=== PATIENT | female | born 1995 | race African-American/Black ===

== ENCOUNTER 2016-03-26 09:22 | Emergency (ER) | payer MEDICAID | END 2016-03-26 09:57 | disposition home or self-care (01) | LOC: D.ER 09:22 | DX: J20.9 Acute bronchitis, unspecified (principal); H66.92 Otitis media, unspecified, left ear ==

== ENCOUNTER 2016-07-09 23:19 | Emergency (ER) | payer MEDICAID | END 2016-07-10 01:30 | disposition home or self-care (01) | LOC: D.ER 23:19 | DX: H66.93 Otitis media, unspecified, bilateral (principal); F17.200 Nicotine dependence, unspecified, uncomplicated ==

== ENCOUNTER 2016-08-13 18:27 | Emergency (ER) | payer MEDICAID | END 2016-08-13 22:39 | disposition home or self-care (01) | LOC: D.ER 18:27 | DX: L02.411 Cutaneous abscess of right axilla (principal) ==

== ENCOUNTER 2017-04-19 21:36 | Emergency (ER) | payer MEDICAID | END 2017-04-20 00:25 | disposition home or self-care (01) | LOC: D.ER 21:36 | DX: J06.9 Acute upper respiratory infection, unspecified (principal); J01.90 Acute sinusitis, unspecified ==

== ENCOUNTER 2017-10-21 17:32 | Emergency (ER) | payer MEDICAID ==
[~2017-10-21] VITALS: Ht 170.2 cm; Wt 127.3 kg
[2017-10-21 17:35] VITALS: Ht 170.2 cm; Wt 127.3 kg
[2017-10-21] MEDS ORDERED: CLEOCIN HCL300 MG PO (18:35)
[2017-10-21] MEDS ORDERED: ULTRAM50 MG PO (18:35)
[2017-10-21 19:07] VITALS: BP 120/573
[2017-11-29 10:21] VITALS: Ht 170.2 cm; Wt 127.3 kg
== END 2017-10-21 19:05 | disposition home or self-care (01) ==
LOC: D.ER 17:32
DX: L73.2 Hidradenitis suppurativa (principal)

== ENCOUNTER 2017-11-23 17:04 | Emergency (ER) | payer MEDICAID ==
[~2017-11-23] VITALS: Ht 170.2 cm; Wt 127.3 kg
[~2017-11-23 17:04] MED LIST: CLEOCIN HCL300 MG PO; ULTRAM50 MG PO
[2017-11-23 17:08] VITALS: Ht 170.2 cm; Wt 127.3 kg
[2017-11-23] MEDS ORDERED: TORADOL10 MG PO (19:27)
[2017-11-23] MEDS ORDERED: DOXYCYCLINE HY100 M2 PO (19:27)
[2017-11-23 19:30] VITALS: BP 105/69
[2017-11-29 10:21] VITALS: Ht 170.2 cm; Wt 127.3 kg
== END 2017-11-23 19:44 | disposition home or self-care (01) ==
LOC: D.ER 17:04
DX: L73.2 Hidradenitis suppurativa (principal); F17.200 Nicotine dependence, unspecified, uncomplicated

== ENCOUNTER 2017-11-29 08:00 | Day surgery (SDC) | payer MEDICAID ==
[~2017-11-29] VITALS: Ht 170.2 cm; Wt 132.0 kg
--- NOTE | ~2017-11-29 | OP ---
PATIENT NAME: GETACHEW ZAMBRANO MEDICAL RECORD: [id number] :93 LOCATION:[facility] ADMISSION DATE: SURGEON: NIKOLAY LACY MD DATE OF OPERATION: 11/29/2017 PREOPERATIVE DIAGNOSES: 1. Axillary hidradenitis suppurativa. 2. Tobacco dependence syndrome. 3. Hypertension. 4. Arthritis. POSTOPERATIVE DIAGNOSES: 1. Axillary hidradenitis suppurativa. 2. Tobacco dependence syndrome. 3. Hypertension. 4. Arthritis. PROCEDURE: Excision of bilateral axillary hidradenitis. SURGEON: Nikolay Lacy MD REPORT OF PROCEDURE: The patient's bilateral armpits were prepped and draped in sterile fashion. We approached the left side first. I mapped out an area around the area of inflamed tissue around the axilla. An ovoid incision was made longitudinally through the axilla incorporating all of this tissue. We continued our dissection through the subcutaneous fatty tissue down towards the fascia. We then undermined the tissue in all directions and reapproximated the subcutaneous tissues with interrupted 3-0 Vicryls. The wound had been irrigated out thoroughly and there was no sign of any bleeding, so at this point we reapproximated the skin edges using vertical mattress 2-0 nylons. At the conclusion of the case, the longitudinal incision through the axilla measured 10 cm in length. We then approached the right axilla. Again, I mapped out an area around the inflamed tissue and an ovoid incision was made longitudinally. We continued dissection through the subcutaneous tissue using electrocautery down to the fascia. We then undermined the tissue in all directions and reapproximated the subcutaneous tissues with interrupted 3-0 Vicryls. After we obtained hemostasis, we irrigated out the wound and then closed the skin using vertical mattress 2-0 nylons. At the conclusion of the case, this longitudinal incision was 11 cm in length. The wounds were then dressed appropriately. COMPLICATIONS: None. CONDITION: Stable. ANESTHESIA: General endotracheal. BLOOD LOSS: 50 mL. TRANSINT:[id number] Voice Confirmation ID: [id number] DOCUMENT ID: [id number] OPERATIVE REPORT [id number] GETACHEW ZAMBRANO NIKOLAY LACY MD at 2300 CC: [id number] DICTATION DATE: 11/29/17 1257 LATIN DANCE INSTRUCTOR: 11/29/17 1304 [facility] [address] [place] [id number]
[~2017-11-29 08:00] MED LIST changes: +DOXYCYCLINE HY100 M2 PO; +TORADOL10 MG PO
[2017-11-29 09:26] LABS: CALC OSMOLALITY 273 mosm/kg (275-300); CALCIUM 8.1 mg/dL (8.5-10.1); CARBON DIOXIDE 22.9 mmol/L (21.0-32.0); CHLORIDE - SERUM 106 mmol/L (98-107); CREATININE - SERUM 0.8 mg/dL (0.6-1.3); GLUCOSE 88 mg/dL (74-106); HCG SERUM NEGATIVE (NEGATIVE); POTASSIUM - SERUM 3.4 mmol/L (3.5-5.1); SODIUM 138 mmol/L (136-145); UREA NITROGEN 9 mg/dL (7-18); eGFR NON AFRICAN AMERICAN > 90 mL/min (90-120)
[2017-11-29 09:43] LABS: HEMATOCRIT 34.8 % (36.0-48.0); HEMOGLOBIN 12.4 g/dL (12-16); LYMPHOCYTES 29.1 % (15-50); MCH 30.2 pg (26.0-34.0); MCHC 35.6 g/dL (31.0-37.0); MCV 84.7 fL (80.0-100.0); MEAN PLATELET VOLUME 10.3 fL (7.4-10.4); NEUTROPHILS 62.7 % (40-80); RBC 4.11 10x6/uL (4.00-5.40); RDW 13.9 % (11.5-14.5); WBC 6.1 10x3/uL (4.8-10.8)
[2017-11-29 09:51] LABS: PLATELET COUNT 266 10x3/uL (130-400)
[2017-11-29 10:21] VITALS: BP 128/73; BMI 45.7
[2017-11-29] MEDS ORDERED: HYDROCODONE-APA1 TAB PO (12:52)
[2017-12-19 08:31] VITALS: Ht 170.2 cm; Wt 132.0 kg
== END 2017-11-29 15:45 | disposition home or self-care (01) ==
LOC: D.OPS 08:00
PROVIDERS: Anesthesiology
DX: L73.2 Hidradenitis suppurativa (principal); I10 Essential (primary) hypertension; F17.200 Nicotine dependence, unspecified, uncomplicated; M19.90 Unspecified osteoarthritis, unspecified site; E66.9 Obesity, unspecified; Z01.812 Encounter for preprocedural laboratory examination

== ENCOUNTER 2017-12-19 07:51 | Day surgery (SDC) | payer MEDICAID ==
[~2017-12-19] VITALS: Ht 170.2 cm; Wt 129.3 kg
--- NOTE | ~2017-12-19 | OP ---
PATIENT NAME: GETACHEW ZAMBRANO MEDICAL RECORD: [id number] :93 [facility] DATE: SURGEON: NIKOLAY LACY MD DATE OF OPERATION: 12/19/2017 PREOPERATIVE DIAGNOSIS: Bilateral axillary hidradenitis. POSTOPERATIVE DIAGNOSIS: Bilateral axillary hidradenitis. PROCEDURE: Excision of bilateral axillary suture. SURGEON: Nikolay Lacy MD CORPORATE COMMUNICATIONS SPECIALIST: Yanni Bright APRN REPORT OF OPERATION: The patient was taken to the GI lab. The patient was given TIVA anesthesia and we were able to remove all of the vertical mattress sutures that were present in the bilateral axilla. There was no sign of any infection in the wound beds at the conclusion of the case. We then covered the wounds with gauze. COMPLICATIONS: None. CONDITION: Stable. ANESTHESIA: TIVA. BLOOD LOSS: Minimal. TRANSINT:[id number] Voice Confirmation ID: [id number] DOCUMENT ID: [id number] NIKOLAY LACY MD at 0916 CC: [id number] DICTATION DATE: 01/20/18 1345 ANESTHETIST: 01/20/18 1428 [facility] 12/19/[address] [address]
[~2017-12-19 07:51] MED LIST changes: +HYDROCODONE-APA1 TAB PO
[2017-12-19 08:08] LABS: HEMATOCRIT 36.1 % (36.0-48.0); HEMOGLOBIN 12.7 g/dL (12-16); MCH 30.1 pg (26.0-34.0); MCHC 35.2 g/dL (31.0-37.0); MCV 85.5 fL (80.0-100.0); MEAN PLATELET VOLUME 9.9 fL (7.4-10.4); RBC 4.22 10x6/uL (4.00-5.40); RDW 13.3 % (11.5-14.5); WBC 6.6 10x3/uL (4.8-10.8)
[2017-12-19 08:31] VITALS: BP 137/74; Ht 170.2 cm; Wt 129.3 kg
[2017-12-19 10:21] LABS: HCG SERUM NEGATIVE (NEGATIVE)
[2017-12-19 10:22] LABS: HCG SERUM NEGATIVE (NEGATIVE)
== END 2017-12-19 11:33 | disposition home or self-care (01) ==
LOC: D.OPS 07:51 → D.PAN 13:00
PROVIDERS: Anesthesiology; Surgery
DX: L72.3 Sebaceous cyst (principal); Z01.812 Encounter for preprocedural laboratory examination

== ENCOUNTER 2018-03-01 21:12 | Emergency (ER) | payer MEDICAID | END 2018-03-01 22:24 | disposition home or self-care (01) | LOC: D.ER 21:12 | DX: M70.62 Trochanteric bursitis, left hip (principal); M70.61 Trochanteric bursitis, right hip; Y93.89 Activity, other specified; M25.552 Pain in left hip; M25.551 Pain in right hip; F17.200 Nicotine dependence, unspecified, uncomplicated ==

== ENCOUNTER 2018-07-17 06:44 | Emergency (ER) | payer MEDICAID ==
[~2018-07-17] VITALS: Ht 170.2 cm; Wt 134.1 kg
[~2018-07-17 06:44] MED LIST changes: +VOLTAREN75 MG PO
[2018-07-17 06:49] VITALS: Ht 170.2 cm; Wt 134.1 kg
[2018-07-17] MEDS ORDERED: VOLTAREN75 MG PO (07:15)
[2018-07-17] MEDS ORDERED: KEFLEX500 MG PO (07:15)
[2018-07-17 07:40] VITALS: BP 116/71
== END 2018-07-17 07:41 | disposition home or self-care (01) ==
LOC: D.ER 06:44
DX: J02.9 Acute pharyngitis, unspecified (principal); F17.200 Nicotine dependence, unspecified, uncomplicated

== ENCOUNTER 2019-01-20 14:06 | Emergency (ER) | payer MEDICAID ==
[~2019-01-20 14:06] MED LIST changes: +KEFLEX500 MG PO
[2019-01-20 14:12] VITALS: Ht 170.2 cm
[2019-01-20] MEDS ORDERED: HYDROCODON-ACE1 EAC7 PO (20:00)
[2019-01-20 20:27] VITALS: BP 142/88
== END 2019-01-20 20:28 | disposition home or self-care (01) ==
LOC: D.ER 14:06
DX: M79.602 Pain in left arm (principal); Z30.46 Encounter for surveillance of implantable subdermal contraceptive

== ENCOUNTER 2019-01-22 09:40 | Day surgery (SDC) | payer MEDICAID ==
[~2019-01-22] VITALS: Ht 170.2 cm; Wt 137.7 kg
[~2019-01-22 09:40] MED LIST changes: +HYDROCODON-ACE1 EAC7 PO
[2019-01-22 09:47] VITALS: Ht 170.2 cm; Wt 137.7 kg
[2019-01-22 13:58] VITALS: BP 130/60
--- NOTE | 2019-01-22 14:00 | NUR ---
PT RECIEVED FROM SURGERY IN STABLE CONDITION. PT AWAKE, ALERT, & TALKING TO STAFF. REPORT REC[facility]ED [facility]. STUDENT. Delbert GRIFFITHS RN ESCORTS PT TO ROOM & CALLS FOR FAMILY. DR. CEVALLOS TO ROOM W/ PT'S MOTHER. DR. CEVALLOS GAVE ORDERS TO D/C PT AFTER VOIDING & ABLE TO DRINK FLUIDS.
[2019-01-22 14:02] VITALS: BP 130/60
[2019-01-22 14:27] VITALS: BP 123/90
--- NOTE | 2019-01-22 14:30 | NUR ---
PT DENIES NAUSEA, SOB, DIFFICUTLY BREATHING OR PAIN AT THIS TIME. PT REMOVES SELF FROM ALL MONITORS AND AMBULATORY TO BR, VOIDS PER SELF WITHOUT DIFFICULTY. PT THEN BACK TO BED, SR UP X2, CALL LIGHT AND PHONE WITHIN REACH. PT STATES SHE IS READY TO GO HOME, PT LAUGHING AND TALKING WITH HER MOTHER.
[2019-01-22 14:42] VITALS: BP 126/95
[2019-01-22] MEDS ORDERED: AUGMENTIN 875-11 TAB PO (14:43)
[2019-01-22] MEDS ORDERED: TYLENOL #4 W/CO1 TAB PO (14:43)
[2019-01-22 14:59] VITALS: BP 130/79
--- NOTE | 2019-01-22 15:00 | NUR ---
DISCHARGE INSTRUCTIONS EXPLAINED TO PT, WITH COPIES PROVIDED ALONG WITH PRESCRIPTIONS AND EDUCATION INSTRUCTIONS SHEETS. PT DENIES ALL QUESTIONS. PT IS DRESSED AND READY FOR DISCHARGE. IV DC'D WITH APPROX 100CC'S LEFT IN CURRENT IV BAG, CATH INTACT, REMOVED BY SAGE ACEVES RN. PT MITZY WELL.
--- NOTE | 2019-01-22 15:10 | NUR ---
PT TAKEN OUT IN STABLE CONDITION BY WHEELCHAIR, BY VOLUNTEER TO PRIVATE VEHICLE, WITH PT'S MOTHER DRIVING.
--- NOTE | 2019-01-26 09:25 | OP ---
PATIENT NAME: GETACHEW ZAMBRANO MEDICAL RECORD: [id number] :93 [facility] DATE: SURGEON: DOROTHEA PALOMO MD DATE OF OPERATION: 01/22/2019 PREOPERATIVE DIAGNOSIS: Retained subcutaneous contraception device. POSTOPERATIVE DIAGNOSIS: Retained subcutaneous contraception device. PROCEDURE: Removal of subcutaneous contraception device. SURGEON: Dorothea Palomo MD AIRPLANE CHARTER CLERK: Darrell Ibrahim. ANESTHETIC: TIVA. FINDINGS: Large amount of ecchymosis and edema in the medial aspect of the left arm. There are 2 lacerations that are suture ligated with nylon. One is approximately 1 cm in width and this is at the previous site of implant. There is a vertical incision of approximately 4.5 cm length above this also. No purulent discharge is noted. There is edema and erythema. SPECIMEN REMOVED: Nexplanon contraception implant. ESTIMATED BLOOD LOSS: Minimal. FLUIDS: 500 cc. URINE OUTPUT: Quantity sufficient void prior to the procedure. COMPLICATIONS: None. DRAINS: None. INDICATIONS: The patient is a 23-year-old female who was seen in the Emergency Room for intractable pain at the site of a Nexplanon after trauma. The patient had the device attempted to be removed there. This was not successful. The patient was seen in the clinic and was recommended to managed conservatively with ice and await recovery. The patient was given instruction to return to the Emergency Room for intractable pain. The patient returns today to the ER with severe pain unrelieved with oral medication. The patient is consented for removal of the device under anesthetic. DESCRIPTION OF PROCEDURE: After informed consent was assured, the patient was taken to the operating room where anesthetic was obtained. The area was prepped and draped. The incision sites were injected with 1% lidocaine with epinephrine. All sutures were removed. The wound is explored. The device located with a hemostat and brought to the incision. Through the 1 cm horizontal incision, the device is visualized and freed from its subcutaneous attachments with Adson pickups and then removed. The site was cleaned and all incision sites closed with a subcuticular stitch of 5-0 Monocryl. Sterile dressing is applied. Sponge, lap, needle counts were correct times 2. The patient will be kept on prophylactic antibiotics and will follow up in clinic after discharge from the hospital. OPERATIVE REPORT [id number] GETACHEW ZAMBRANO TRANSINT:[id number] Voice Confirmation ID: [id number] DOCUMENT ID: [id number] DOROTHEA PALOMO MD at 0925 CC: [id number] DICTATION DATE: 01/22/19 1350 SOLID WASTE COLLECTION WORKER: 01/22/19 1435 [facility] 01/22/19 [place] [id number] [place] [id number]
== END 2019-01-22 15:10 | disposition home or self-care (01) ==
LOC: D.ER 09:40 → D.OPS 09:40 → EDSTATUS 10:50 → D.OPS 15:10
PROVIDERS: ATTEND Obstetrics & Gynecology
DX: T85.9XXA Unspecified complication of internal prosthetic device, implant and graft, initial encounter (principal)

== ENCOUNTER 2019-04-06 19:58 | Emergency (ER) | payer MEDICAID ==
[~2019-04-06] VITALS: Ht 170.2 cm; Wt 113.6 kg
[~2019-04-06 19:58] MED LIST changes: +AUGMENTIN 875-11 TAB PO; +TYLENOL #4 W/CO1 TAB PO
[2019-04-06 20:16] VITALS: Ht 170.2 cm; Wt 113.6 kg
[2019-04-06] MEDS ORDERED: MUCINEX DM ER1 EAC1 PO (21:26)
[2019-04-06] MEDS ORDERED: ZOFRAN ODT4 MG/UDTAB PO (21:26)
[2019-04-06] MEDS ORDERED: TAMIFLU75 MG PO (21:26)
[2019-04-06 22:30] VITALS: BP 128/70
== END 2019-04-06 22:19 | disposition home or self-care (01) ==
LOC: D.ER 19:58
DX: J11.1 Influenza due to unidentified influenza virus with other respiratory manifestations (principal); R50.9 Fever, unspecified

== ENCOUNTER 2020-06-02 18:18 | Emergency (ER) | payer OTHER ==
[~2020-06-02] VITALS: Ht 170.2 cm; Wt 141.8 kg
[~2020-06-02 18:18] MED LIST changes: +MUCINEX DM ER1 EAC1 PO; +TAMIFLU75 MG PO; +ZOFRAN ODT4 MG/UDTAB PO
[2020-06-02 18:20] VITALS: BP 126/78; Ht 170.2 cm; Wt 141.8 kg
== END 2020-06-02 20:00 | disposition left against medical advice (07) ==
LOC: D.ER 18:18
DX: M25.561 Pain in right knee (principal)